=== PATIENT | male | born 1960 | race Caucasian/White ===

== ENCOUNTER 2018-12-30 14:39 | Inpatient (IN) | payer OTHER ==
[~2018-12-30] VITALS: Ht 170.1 cm; Wt 58.2 kg
--- NOTE | ~2018-12-30 | EKG ---
[place], [place] ELECTROCARDIOGRAM REPORT NAME: MACKENZIE BROWNE UNIT #: [id number] ROOM: 403 DOCTOR: ABBIE DRAFT REPORT BIRTHDATE: [birth year] [facility] Test Date: 2018-12-31 Test Time: 01:40:20 Pat Name: MACKENZIE BROWNE Department: Room: 403 1 Gender: M Director Nursing Service: Christelle Conway : 1960 Requested By: FERNY KHANNA Order Number: [id number] Reading MD: Kavya Omer MD Measurements Intervals [place] Rate: 72 P: 57 [place]: 164 QRS: -29 QRSD: 86 T: 3 QT: 413 QTc: 453 Interpretive Statements Sinus rhythm Abnormal R-wave progression, early transition LVH by voltage Baseline wander in lead(s) V2,V5 Electronically Signed On 12-31-2018 7:12:17 PDT by Kavya Omer MD CM:EKGRPT:ELECTROCARDIOGRAM REPORT [id number] FERNY CALABRESEANY DRAFT REPORT FERNY KHANNA DO
--- NOTE | ~2018-12-30 | EKG ---
[place], [place] ELECTROCARDIOGRAM REPORT NAME: MACKENZIE BROWNE UNIT #: [id number] ROOM: 403 DOCTOR: ABBIE DRAFT REPORT BIRTHDATE: [birth year] [facility] Test Date: 2018-12-30 Test Time: 23:16:33 Pat Name: MACKENZIE BROWNE Department: Room: 403 1 Gender: M Director Of Music: Christelle Conway : 1960 Requested By: FERNY KHANNA Order Number: [id number] Reading MD: Kavya Omer MD Measurements Intervals [place] Rate: 67 P: 59 [place]: 163 QRS: -31 QRSD: 87 T: -2 QT: 439 QTc: 464 Interpretive Statements Sinus rhythm Probable left atrial enlargement RSR' in V1 or V2, right VCD or RVH Left ventricular hypertrophy Electronically Signed On 12-31-2018 7:11:03 PDT by Kavya Omer MD CM:EKGRPT:ELECTROCARDIOGRAM REPORT [id number] FERNY TORRES DRAFT REPORT FERNY KHANNA DO
--- NOTE | ~2018-12-30 | EKG ---
[place], [place] ELECTROCARDIOGRAM REPORT NAME: MACKENZIE BROWNE UNIT #: [id number] ROOM: 403 DOCTOR: ABBIE DRAFT REPORT BIRTHDATE: [birth year] [facility] Test Date: 2018-12-30 Test Time: 20:50:35 Pat Name: MACKENZIE BROWNE Department: Room: 403 1 Gender: M Housing Coordinator: Christelle Conway : 1960 Requested By: FERNY KHANNA Order Number: [id number] Reading MD: Kavya Omer MD Measurements Intervals [place] Rate: 80 P: 53 [place]: 160 QRS: -30 QRSD: 89 T: -2 QT: 382 QTc: 441 Interpretive Statements Sinus rhythm Probable left atrial enlargement RSR' in V1 or V2, right VCD or RVH Inferior infarct, age indeterminate Baseline wander in lead(s) II,III,aVF Electronically Signed On 12-31-2018 7:09:57 PDT by Kavya Omer MD CM:EKGRPT:ELECTROCARDIOGRAM REPORT [id number] FERNY TORRES DRAFT REPORT FERNY KHANNA DO
--- NOTE | ~2018-12-30 | EKG ---
[place], [place] ELECTROCARDIOGRAM REPORT NAME: MACKENZIE BROWNE UNIT #: [id number] ROOM: 403 DOCTOR: ABBIE DRAFT REPORT BIRTHDATE: [birth year] [facility] Test Date: 2018-12-30 Test Time: 15:26:20 Pat Name: MACKENZIE BROWNE Department: Room: 403 Gender: M Checking Clerk: Jaycee Mc : 1960 Requested By: JEREMIAH FLETCHER Order Number: [id number] Reading MD: Kavya Omer MD Measurements Intervals [place] Rate: 78 P: 57 [place]: 161 QRS: -32 QRSD: 89 T: 5 QT: 406 QTc: 463 Interpretive Statements Sinus rhythm Inferior infarct, old No previous ECG available for comparison Electronically Signed On 12-31-2018 7:05:30 PDT by Kavya Omer MD CM:EKGRPT:ELECTROCARDIOGRAM REPORT [id number] JEREMIAH TORRES DRAFT REPORT JEREMIAH FLETCHER DO
[2018-12-30 14:39] VITALS: BP 153/81
[2018-12-30 15:36] LABS: BASO # 0.1 10*3/uL (0.0-0.1); BASO % 0.7 % (0.0-1.0); EOS # 0.3 10*3/uL (0.0-0.4); EOS % 4.1 % (1.0-4.0); HEMATOCRIT 44.5 % (42.0-52.0); HEMOGLOBIN 14.4 g/dl (14.0-18.0); LYMPH # 1.4 10*3/uL (1.3-4.4); LYMPH % 19.7 % (27.0-41.0); MEAN CELL VOLUME 94.9 fl (80.0-94.0); MEAN CORPUSCULAR HGB 30.7 pg (27.0-31.0); MEAN CORPUSCULAR HGB CONC 32.4 g/dl (33.0-37.0); MEAN PLATELET VOLUME 9.7 fl (9.6-12.3); MONO # 0.8 10*3/uL (0.1-1.0); MONO % 11.8 % (3.0-9.0); NEUT # 4.5 10*3/uL (2.3-7.9); NEUT % 62.9 % (47.0-73.0); PLATELET COUNT AUTOMATED 273 10*3/uL (130-400); RED BLOOD COUNT 4.69 10*6/uL (4.50-5.90); RED CELL DISTRI WIDTH 13.4 % (0-14.5); WHITE BLOOD COUNT 7.1 10*3/uL (4.8-10.8)
[2018-12-30 15:46] LABS: ACT PARTIAL THROMBO TIME 24.2 SECONDS (20.8-31.5)
[2018-12-30 15:51] LABS: ALBUMIN 3.2 gm/dl (3.1-4.5); ALKALINE PHOSPHATASE 111 U/L (45-117); BUN 9 mg/dl (7-24); CHLORIDE 106 mmol/L (98-107); CREATININE 0.82 mg/dL (0.70-1.30); LIPASE 162 U/L (73-393); POTASSIUM 4.6 mmol/L (3.5-5.1); SGOT/AST 19 IU/L (3-35); SGPT/ALT 27 U/L (12-78); SODIUM 140 mmol/L (136-145); TROPONIN I < 0.015 ng/ml (<0.045)
[2018-12-30 16:16] VITALS: BP 140/83
[2018-12-30 18:51] VITALS: BP 127/72
--- NOTE | 2018-12-30 18:51 | NUR ---
A 58, admitted to , under the services of XOCHILT Perez DO with a diagnosis of CHEST PAIN RULE OUT RI. Chief complaint is ABNORMAL LABS . Patient arrived via bed from ER. Monitor applied. Initial assessment completed. Vital signs taken and recorded. XOCHILT PEREZ DO notified of admission to the unit. Orders received. See assessment for past medical history, medications and allergies. Patient and/or family oriented to unit. [facility] visitation policy reviewed. Clothing/patient valuable form completed. KINGA HUGGINS
[2018-12-30] MEDS ORDERED: ZESTRIL10 MG PO (19:26)
[2018-12-30] MEDS ORDERED: NEURONTIN300 MG PO (19:28)
[2018-12-30] MEDS ORDERED: OMEPRAZOLE D/R20 MG PO (19:32)
[2018-12-30] MEDS ORDERED: ASPIR 8181 MG PO (19:35)
[2018-12-30] MEDS ORDERED: THIAMINE HCL100 MG PO (19:36)
[2018-12-30] MEDS ORDERED: B-121000 MCG PO (19:43)
[2018-12-30] MEDS ORDERED: TOPROL XL50 M1 PO (19:47)
[2018-12-30 20:00] VITALS: BP 134/76
--- NOTE | 2018-12-30 20:40 | NUR ---
DR RUSSELL CALLED TO MAKE AWARE THAT PATIENTS HOME MEDICATIONS ARE UP TO DATE
--- NOTE | 2018-12-30 23:30 | NUR ---
REPORT RECIEVED FROM DESIRAE BENTLEY. PT IS RESTING IN BED AT THIS TIME WITH NO COMPLAINTS OF PAIN OR DISCOMFORT. PT IS AWARE HE IS NPO AT MIDNIGHT FOR ECHO IN THE MORNING. BED LOCKED AND IN LOWEST POSITION. CALL LIGHT IS WITHIN REACH. WILL CONTINUE TO MONITOR PT.
[2018-12-31] VITALS: BP 145/81
[2018-12-31 06:06] LABS: BASO # 0.1 10*3/uL (0.0-0.1); BASO % 0.9 % (0.0-1.0); EOS # 0.3 10*3/uL (0.0-0.4); EOS % 4.5 % (1.0-4.0); HEMATOCRIT 42.3 % (42.0-52.0); HEMOGLOBIN 13.9 g/dl (14.0-18.0); LYMPH # 1.5 10*3/uL (1.3-4.4); LYMPH % 21.9 % (27.0-41.0); MEAN CELL VOLUME 95.7 fl (80.0-94.0); MEAN CORPUSCULAR HGB 31.4 pg (27.0-31.0); MEAN CORPUSCULAR HGB CONC 32.9 g/dl (33.0-37.0); MONO # 0.8 10*3/uL (0.1-1.0); MONO % 12.1 % (3.0-9.0); NEUT # 4.1 10*3/uL (2.3-7.9); PLATELET COUNT AUTOMATED 282 10*3/uL (130-400); RED BLOOD COUNT 4.42 10*6/uL (4.50-5.90); RED CELL DISTRI WIDTH 13.3 % (0-14.5); WHITE BLOOD COUNT 6.9 10*3/uL (4.8-10.8)
[2018-12-31 06:33] LABS: BUN 10 mg/dl (7-24); CHLORIDE 106 mmol/L (98-107); CHOLESTEROL 197 mg/dL (<200); CREATININE 0.72 mg/dL (0.70-1.30); PHOSPHOROUS 2.5 mg/dL (2.5-4.9); POTASSIUM 4.4 mmol/L (3.5-5.1); SODIUM 140 mmol/L (136-145); TRIGLYCERIDES 121 mg/dl (<150); VLDL CHOLESTEROL 24 mg/dL (6-40)
[2018-12-31 06:43] LABS: HDL CHOLESTEROL 43 mg/dl (40-60); LDL CHOLESTEROL 130 mg/dL (9-159)
--- NOTE | 2018-12-31 08:46 | NUR ---
PT DOWN FOR STRESS TEST AT THIS TIME.
--- NOTE | 2018-12-31 09:00 | NUR ---
Senior Staff Accountant in to talk to patient. Patient states lives at home with alone. There are few steps in the home. Physician: kevin [facility]: [facility] Home health services: none Patient's level of ADLs: INDEPENDENT Patient has working utilities: all working DME: none Follow-up physician's appointment after d/c: will be made by hospialist nurse director upon discharge Does patient want to access PORTAL?: no Discharge plan discussed with patient, patient lives at home alone, states he gets around fine, patient states he will be going home when able and denies any home needs. BRENNON PRESTON
--- NOTE | 2018-12-31 10:08 | NUR ---
INFORMED SIGNED CONSENT OBTAINED FOR LEXISCAN STRESS TEST WITH DR DHILLON. RESTING EKG NSR HR 77 BP 138/64. PULSE OX 95% LUNGS CLEAR. PT COMPLETED ONE MINUTE OF LEXISCAN PROTOCOL WITH PT RECEIVING LEXISCAN 0.4MG IV OVER 10 SECONDS. RARE PVC NOTED. NO ST CHANGES SEEN. PT C/O SOB WITH INJECTION. LAST RECOVERY HR OF 105 BP 116/70. PT IN STABLE CONDITION, AWAITING NUCLEAR IMAGES.
[2018-12-31 12:00] VITALS: BP 137/74; BP 152/78
--- NOTE | 2018-12-31 12:28 | NUR ---
PT BACK TO ROOM FOLLOWING STRESS TEST. PER , IT IS OK TO RESUME HIS PREVIOUS DIET.
--- NOTE | 2018-12-31 12:52 | NUR ---
PT OFF FLOOR FOR LEXISCAN AT 1000 ASSESSMENT TIME. WILL ASSESS UPON RETURN.
--- NOTE | 2018-12-31 14:01 | NUR ---
NIKKI IN CARDIOLOGY NOTIFIED OF NEW CONSULT FOR . SAID SHE WOULD PASS IT ON.
--- NOTE | 2018-12-31 14:27 | NUR ---
NEW CONSULT FOR CANCELLED. NIKKI NOTIFIED. SAID SHE WOULD PASS IT ON.
[2018-12-31 16:00] VITALS: BP 124/88
--- NOTE | 2018-12-31 17:12 | NUR ---
Discharge instructions reviewed with patient/family. Patient receptive and verbalizes understanding. Follow-up care arranged. Written instructions given to patient/family. ZECHARIAH ALEX
== END 2018-12-31 17:12 | disposition home or self-care (01) | DRG 392 ==
LOC: ED 14:39 → 4E 16:54 → EDHOLD 16:54 → 4E 18:45
PROVIDERS: Emergency Medicine; Student in an Organized Health Care Education/Training Program; ADMIT Internal Medicine
PROC: 4A02XM4 Measurement of Cardiac Total Activity, External Approach (ICD-10-PCS; principal; 2018-12-31)
PROC: 3E073KZ Introduction of Other Diagnostic Substance into Coronary Artery, Percutaneous Approach (ICD-10-PCS; 2018-12-31)
DX: K21.9 Gastro-esophageal reflux disease without esophagitis (principal); E44.0 Moderate protein-calorie malnutrition; E83.41 Hypermagnesemia; I10 Essential (primary) hypertension; M19.90 Unspecified osteoarthritis, unspecified site; E87.5 Hyperkalemia; E78.5 Hyperlipidemia, unspecified; I99.8 Other disorder of circulatory system; K30 Functional dyspepsia; G62.9 Polyneuropathy, unspecified; Z68.20 Body mass index [BMI] 20.0-20.9, adult; I25.2 Old myocardial infarction; Z95.5 Presence of coronary angioplasty implant and graft; Z87.891 Personal history of nicotine dependence; Z79.82 Long term (current) use of aspirin; Z82.49 Family history of ischemic heart disease and other diseases of the circulatory system; Z79.899 Other long term (current) drug therapy

== ENCOUNTER 2022-07-24 09:17 | Inpatient (IN) | payer OTHER ==
[~2022-07-24] VITALS: Ht 170.1 cm; Wt 73.3 kg
[~2022-07-24 09:17] MED LIST: ASPIR 8181 MG PO; B-121000 MCG PO; NEURONTIN300 MG PO; OMEPRAZOLE D/R20 MG PO; THIAMINE HCL100 MG PO; TOPROL XL50 M1 PO; ZESTRIL10 MG PO
[2022-07-24 09:24] VITALS: BP 142/84
[2022-07-24 09:57] LABS: BASO # 0.1 10*3/uL (0.0-0.1); BASO % 0.6 % (0.0-1.0); EOS # 0.2 10*3/uL (0.0-0.4); EOS % 2.1 % (1.0-4.0); HEMATOCRIT 49.6 % (42.0-52.0); LYMPH # 1.4 10*3/uL (1.3-4.4); LYMPH % 15.5 % (27.0-41.0); MEAN CELL VOLUME 93.4 fl (80.0-94.0); MEAN CORPUSCULAR HGB 31.6 pg (27.0-31.0); MEAN CORPUSCULAR HGB CONC 33.9 g/dl (33.0-37.0); MEAN PLATELET VOLUME 9.3 fl (9.6-12.3); MONO % 11.2 % (3.0-9.0); NEUT # 6.1 10*3/uL (2.3-7.9); PLATELET COUNT AUTOMATED 271 10*3/uL (130-400); RED BLOOD COUNT 5.31 10*6/uL (4.50-5.90); RED CELL DISTRI WIDTH 12.7 % (0-14.5); WHITE BLOOD COUNT 8.7 10*3/uL (4.8-10.8)
[2022-07-24 10:07] LABS: ACT PARTIAL THROMBO TIME 27.6 SECONDS (20.0-32.1)
[2022-07-24 10:28] LABS: ALKALINE PHOSPHATASE 114 U/L (45-117); BUN 9 mg/dl (7-24); CHLORIDE 102 mmol/L (98-107); CREATININE 0.77 mg/dL (0.70-1.30); POTASSIUM 4.4 mmol/L (3.5-5.1); SGPT/ALT 32 U/L (12-78); SODIUM 133 mmol/L (136-145); TOTAL PROTEIN 7.6 gm/dL (6.4-8.2)
[2022-07-24 15:19] VITALS: BP 145/85
[2022-07-24 16:00] VITALS: BP 157/78
[2022-07-24 20:41] VITALS: BP 112/76
[2022-07-24 21:00] VITALS: BP 139/73
[2022-07-24] MEDS ORDERED: OPTIVE 0.5%-0.915 ML OP (21:55)
[2022-07-24] MEDS ORDERED: ROSUVASTATIN CA40 MG PO (21:56)
[2022-07-24] MEDS ORDERED: CELECOXIB200 M1 PO (21:56)
[2022-07-25] VITALS: BP 133/56
[2022-07-25 07:26] LABS: BASO # 0.1 10*3/uL (0.0-0.1); BASO % 0.6 % (0.0-1.0); EOS # 0.2 10*3/uL (0.0-0.4); EOS % 1.9 % (1.0-4.0); HEMATOCRIT 45.6 % (42.0-52.0); LYMPH # 1.2 10*3/uL (1.3-4.4); LYMPH % 14.3 % (27.0-41.0); MEAN CELL VOLUME 93.3 fl (80.0-94.0); MEAN CORPUSCULAR HGB 31.3 pg (27.0-31.0); MEAN CORPUSCULAR HGB CONC 33.6 g/dl (33.0-37.0); MEAN PLATELET VOLUME 9.5 fl (9.6-12.3); MONO # 0.9 10*3/uL (0.1-1.0); MONO % 10.5 % (3.0-9.0); NEUT # 6.1 10*3/uL (2.3-7.9); NEUT % 72.1 % (47.0-73.0); PLATELET COUNT AUTOMATED 253 10*3/uL (130-400); RED BLOOD COUNT 4.89 10*6/uL (4.50-5.90); RED CELL DISTRI WIDTH 12.6 % (0-14.5); WHITE BLOOD COUNT 8.4 10*3/uL (4.8-10.8)
[2022-07-25 07:44] LABS: BUN 12 mg/dl (7-24); CHLORIDE 104 mmol/L (98-107); CHOLESTEROL 102 mg/dL (<200); LDL CHOLESTEROL 36 mg/dL (9-159); POTASSIUM 4.2 mmol/L (3.5-5.1); SODIUM 138 mmol/L (136-145); TRIGLYCERIDES 95 mg/dl (<150)
[2022-07-25 08:00] VITALS: BP 134/79
[2022-07-25 12:00] VITALS: BP 127/70
[2022-07-25 16:00] VITALS: BP 128/64
[2022-07-25 20:00] VITALS: BP 153/77
[2022-07-26] VITALS: BP 117/59
[2022-07-26 08:00] VITALS: BP 136/80
[2022-07-26] MEDS ORDERED: IMDUR SA30 MG PO ×2 (08:24)
== END 2022-07-26 09:45 | disposition home or self-care (01) | DRG 392 ==
LOC: ED 09:17 → EDHOLD 14:18 → 5E 14:18 → EDHOLD 14:49 → 5E 20:07
PROVIDERS: Emergency Medicine; Internal Medicine; ADMIT Internal Medicine; ATTEND Internal Medicine
PROC: 4A02XM4 Measurement of Cardiac Total Activity, External Approach (ICD-10-PCS; principal; 2022-07-25)
PROC: 3E073KZ Introduction of Other Diagnostic Substance into Coronary Artery, Percutaneous Approach (ICD-10-PCS; 2022-07-25)
DX: K21.9 Gastro-esophageal reflux disease without esophagitis (principal); E87.1 Hypo-osmolality and hyponatremia; E78.5 Hyperlipidemia, unspecified; I10 Essential (primary) hypertension; G62.9 Polyneuropathy, unspecified; R73.9 Hyperglycemia, unspecified; I25.118 Atherosclerotic heart disease of native coronary artery with other forms of angina pectoris; E83.41 Hypermagnesemia; Z87.891 Personal history of nicotine dependence; I25.2 Old myocardial infarction; Z68.25 Body mass index [BMI] 25.0-25.9, adult